=== PATIENT | male | born 1985 | race African-American/Black ===

== ENCOUNTER → 2016-10-03 | Outpatient (CLI) | payer BC, OTHER ==
[~2016-10-03] MED LIST: ANAPROX DS550 M1 PO; AUGMENTIN875 MG PO; BACLOFEN10 MG PO; CHANTIX0.5 MG PO; CIPRO PO; FLONASE16 GM; IBUPROFEN PO; LEXAPRO PO; NO MEDICATIONS; PREDNISONE PO; VICODIN 5/500 T1 TAB PO
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
== END | disposition home or self-care (01) ==
LOC: CRAD 19:35
DX: R07.81 Pleurodynia (principal); M25.511 Pain in right shoulder; M25.512 Pain in left shoulder; M54.2 Cervicalgia; M54.6 Pain in thoracic spine; M46.04 Spinal enthesopathy, thoracic region
CPT/HCPCS: 71100; 72040; 72070; 73030

== ENCOUNTER 2016-10-04 20:12 | Emergency (ER) | payer BC, OTHER ==
--- NOTE | ~2016-10-04 | EKG ---
PATIENT: OZZIE LARIOS UNIT #: [id number] Ventricular Rate: 83 BPM Atrial Rate: 83 BPM P-R Interval: 150 ms QRS Duration: 100 ms Q-T Interval: 362 ms QTC Calculation(Bezet): 425 ms P [place]: 56 degrees Calculated R [place]: 61 degrees Calculated T [place]: 44 degrees Diagnosis Line: Normal sinus rhythm with sinus arrhythmia Diagnosis Line: Normal ECG Diagnosis Line: When compared with ECG of 19-SEP-2014 09:48, Diagnosis Line: Incomplete right bundle branch block is no longer Diagnosis Line: Present Diagnosis Line: Confirmed by BRAYDON TELLEZ MD ([id number]) on Diagnosis Line: 11/14/2016 7:02:42 AM INTERPRETING MD: ELENITA
[2016-10-04 20:50] LABS: BLOOD UREA NITROGEN 12 mg/dL (9-23); BUN/CREATININE RATIO 17.14; CALCIUM SERUM 9.2 mg/dL (8.4-10.2); CARBON DIOXIDE 27 mmol/L (22-31); CHLORIDE 105 mmol/L (100-111); CREATININE SERUM 0.7 mg/dL (0.6-1.4); GLOM FILT RATE Estimated ABOVE60 mL/min (>60); GLUCOSE FASTING 80 mg/dL (70-110); POTASSIUM 3.9 mmol/L (3.5-5.1); SODIUM 139 mmol/L (135-145)
== END 2016-10-04 21:18 | disposition home or self-care (01) ==
LOC: SED 20:12
PROVIDERS: Emergency Medicine
DX: R07.89 Other chest pain (principal); Z86.711 Personal history of pulmonary embolism; F17.210 Nicotine dependence, cigarettes, uncomplicated
CPT/HCPCS: 36415; 80048; 85379; 93005; 99284

== ENCOUNTER → 2016-10-18 | Outpatient (CLI) | payer OTHER, BC ==
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
== END | disposition home or self-care (01) ==
LOC: SMRI 15:59
DX: S46.011A Strain of muscle(s) and tendon(s) of the rotator cuff of right shoulder, initial encounter (principal)
CPT/HCPCS: 73221